=== PATIENT | female | born 1995 | race Caucasian/White ===

== ENCOUNTER 2018-05-09 10:28 | Emergency (ER) | payer SELFPAY ==
[~2018-05-09] VITALS: Ht 154.9 cm; Wt 49.9 kg
[2018-05-09 10:41] VITALS: Ht 154.9 cm; Wt 49.9 kg
[2018-05-09 12:03] LABS: microscopic required? YES; urine erythrocyte NEGATIVE (NEGATIVE)
[2018-05-09 12:59] VITALS: BP 106/68
== END 2018-05-09 12:59 | disposition home or self-care (01) ==
LOC: ED 10:28
PROVIDERS: Emergency Medicine
DX: J98.01 Acute bronchospasm (principal); N39.0 Urinary tract infection, site not specified; Z98.890 Other specified postprocedural states
CPT/HCPCS: 87804; J2930; J7613; J7644

== ENCOUNTER 2018-06-04 18:39 | Emergency (ER) | payer MEDICAID ==
[~2018-06-04] VITALS: Ht 154.9 cm; Wt 49.9 kg
[2018-06-04 18:50] VITALS: Ht 154.9 cm; Wt 49.9 kg
[2018-06-04 19:30] VITALS: BP 115/72
== END 2018-06-04 19:30 | disposition home or self-care (01) ==
LOC: ED 18:39
DX: J02.9 Acute pharyngitis, unspecified (principal); H92.01 Otalgia, right ear; Z41.1 Encounter for cosmetic surgery; Z98.890 Other specified postprocedural states